=== PATIENT | male | born 1950 | race Native Hawaiian/Other Pacific Islander ===

== ENCOUNTER 2020-09-14 10:19 | Inpatient (IN) | payer OTHER ==
[2020-09-14] VITALS (22 sets, daily range): BP systolic 103–167; BP diastolic 72–111; TEMP 97–98.1; Ht 188 cm; Wt 81.6 kg
[~2020-09-14] VITALS: Ht 188 cm; Wt 81.6 kg
[~2020-09-14 10:19] MED LIST: ADULT ASA81 MG PO; AMITRIPTYLIN50 MG PO; ASPIRIN325 M1 PO; CYCL10TA35 PO; DICL75TA4 PO; GABA300C2 PO; LISITAB PO; METO50TA27 PO; OMEPRAZOLE20 M1 PO; PAROXETINE10 MG PO; PRAVACHOL80 MG PO; TRAZ50TA36 PO
[2020-09-14 10:42] LABS: PLATELET COUNT 242 K/uL (142-355)
[2020-09-14 10:53] LABS: POTASSIUM 3.6 mmol/L (3.6-5.2); SODIUM 137 mmol/L (136-145)
[2020-09-14 11:00] LABS: PARTIAL THROMBOPLASTIN TIME 21.6 SECONDS (24.5-33.6)
--- NOTE | 2020-09-14 19:07 | NUR ---
TO PCU VIA BED. PT IS ON FOOD STOREROOM CLERK WITH RATE OF 133-150.
--- NOTE | 2020-09-14 19:15 | NUR ---
BP KEEGAN 170/100. PT IS ALERT AND NOW BECOMING CALMER. IVPB AZITHROMAX BEING HUNG TO INFUSE. ATIVAN 1 MG IVSP BEING GIVEN FOR ANXIETY. DAUGHTER AT BEDSIDE.
--- NOTE | 2020-09-14 20:11 | NUR ---
PT IS IN RADIOLOGY FOR CATSCAN OF CHEST PER ORDERS OF DR. JIM. PT HAS HAD CT OF ABDOMEN EARLIER IN ER. PT BACK FROM CATSCAN AT 20:[address] TO HIS ROOM.HEART RATE IS 122 BPM. O2 SATS ARE 98 PERCENT.
--- NOTE | 2020-09-14 20:19 | NUR ---
1703 PT ARRIVED TO ROOM 1106 VIA STRETCHER. PT PALE, DIAPHORETIC, HR 167. HEAD TO TOE ASSESSMENT COMPLETED. MD NOTIFIED. MD AT BEDSIDE TO ASSESS PATIENT. NO NEW ORDERS GIVEN AT THIS TIME. HISTORY COMPLETED. HOME MEDICATIONS OBTAINED PER LIST.1753 NEW ORDERS GIVEN FOR CARDIAC ENZYMES AND EKG 20G TO LFA X1. 20G TO RFA X 1. MD NOTIFIED HR OF 168 NEW ORDERS GIVEN OR CARDIZEM 5MG IVP. ORDERS CARRIED OUT. ORDER FOR MORPHINE OBTAINED AND CARRIED OUT. PT HR 150-170. BP 170/100 MD NOTIFIED. FSBS 148 PT IS DIAPHORETIC AND PALE COMPLAINNG OF A TEARING PAIN BETWEEN SHOULDERS. NEW ORDERS GIVEN HR 153 LABETOLOL 10MG IV GIVEN. HR 120 MD NOTIFIED. SPOKE TO RADIOLOGIST REGARDING PT HAVING CT WITH CONTRAST. GAVE ORDER FOR CT OF CHEST WITH CONTRAST. NEW ORDERS CARRIED OUT AT 1945 BP 147/90.
--- NOTE | 2020-09-14 20:44 | NUR ---
NOTIFED OF CT RESULTS NO NEW ORDERS GIVEN.
--- NOTE | 2020-09-14 21:21 | NUR ---
PT IS RESTING QUIETLY AT THIS TIME. RESP EVEN AND NONLABORED. CM WITH TACHYCARDIA AT 106. MORE REGULAR RHYTHM. BP IS 162/90. MONITORING BP. HR IS 109. O2 SAT IS 99 PERCENT.
[2020-09-15] VITALS (24 sets, daily range): BP systolic 11–157; BP diastolic 58–106; TEMP 97.4–99
--- NOTE | 2020-09-15 03:57 | NUR ---
PT AROUSES, SHAKING AND PULLING OFF MONITORING EQUIPMENT. COMPLAINS OF BACK PAIN. MEDICATED WITH DILAUDID 1 MG IVSP.
--- NOTE | 2020-09-15 04:52 | NUR ---
NOTED BOTH ARMS ARE DISCOLORED. BRUSING FROM FALLS CHEESE FACTORY WORKER.
--- NOTE | 2020-09-15 04:53 | NUR ---
LAB HERE AND BLOOD WAS DRAWN FOR AM LABS.
--- NOTE | 2020-09-15 04:55 | NUR ---
AT 0000AM LAB YO BLOOD FOR CARDIAC ENZYMES NUMBER 3 . NUMBER 3 EKG WAS DONE ALSO.
[2020-09-15 05:17] LABS: PLATELET COUNT 169 K/uL (142-355)
[2020-09-15 05:26] LABS: POTASSIUM 3.1 mmol/L (3.6-5.2)
--- NOTE | 2020-09-15 05:30 | NUR ---
HR INCREASED TO 161 WHEN PT POSITIONED HIMSELF ON RIGHT SIDE.
--- NOTE | 2020-09-15 06:32 | NUR ---
PT HAS PERIODS OF SVT. HR QUICKLY RETURNS TO SINUS TACH 90 TO 110 BPM.
--- NOTE | 2020-09-15 08:00 | NUR ---
PT'S HR NOTED TO BE 150-170 ON TEL. PT RESTING IN BED WITH EYES CLOSED PT RESPONDS TO COMMANDS ALERT AND ORIENTED X 3. PT DENIES ANY CHEST PAIN OR SHORTNESS OF BREATH AT THIS TIME. WILL CONT TO MONITOR.
--- NOTE | 2020-09-15 10:00 | NUR ---
SPOKE WITH MD CONCERNING PT'S COUGH. COUGH NOTED TO BE LOOSE AND RATTLING. IVF'S DECREASED TO 125ML/HR PRIOR TO MD MAKING ROUNDS. WILL INFORM MD AND AWAIT NEW ORDERS.
--- NOTE | 2020-09-15 10:30 | NUR ---
PT'S BP NOTED TO BE 142/92 PT NOTED TO BE ANXIOUS AND JITTERY AT THIS TIME. PT'S SISTER IN ROOM AT THIS TIME. VISITOR SEEMS TO MAKE PT MORE ANXIOUS AT THIS TIME. WILL GIVE PRN MEDS FOR AGITATION AND CONT TO MONITOR.
--- NOTE | 2020-09-15 10:44 | NUR ---
PATIENT IS VERY HARD OF HEARING. SISTER PERCY CLARK IS AT BEDSIDE STATES THAT SHE AND THEIR OTHER SISTER GO CHECK ON MR. [place] SEVERAL TIMES A DAY. THEY PREPARE HIS MEALS FOR HIM. THE PATIENT DENIES THE NEED FOR HOME HEALTH SERVICES AND THE SISTERS ARE GOING TO CONTINUE TO TAKE CARE OF THE PATIENT ONCE HE IS DISCHARGED.
--- NOTE | 2020-09-15 11:00 | NUR ---
PT RESTING IN BED WITH EYES CLSOED. NO PROBLEMS NOTED AT THIS TIME.
--- NOTE | 2020-09-15 12:00 | NUR ---
PT'S BP NOTED TO BE 153/97 HR OF 110. PT RESTING IN BED WITH EYES CLOSED. NO CO OR PROBLEMS NOTED. MD INFORMED AND WILL MEDICATE WITH PRN AND CONT TO MONITOR.
--- NOTE | 2020-09-15 12:15 | NUR ---
DR JIM AT BS MAKING ROUNDS AT THIS TIME.
--- NOTE | 2020-09-15 13:47 | NUR ---
PT NOTED TO HAVE RUNS OF SVT ON TEL WITH RATE OF 140-150'S. RYTHM NOTED TO RETURN BACK TO SR WITH OCCASIONAL PAC'S WITH RATE OF 104. MD INFORMED AND WILL GIVE PRN CARDIZEM AND CONT TO MONITOR.
--- NOTE | 2020-09-15 14:30 | NUR ---
CALLED TO ROOM BY PT. UPON ENTERING THE ROOM PT VERY AGITATED AND TREMORS TO HANDS NOTED TO BE INCREASED AT THIS TIME. PT DEMANDED TO BE FED HIS JELLO SAGE HE WAS TOO SHAKY AT THIS TIME. PT FED HIS JELLO. PT THEN DEMANDED TO BE HELPED TO THE BR. PT ASSITED TO BR X 2. PT VERY UNSTEADY AT THIS TIME WITH AMBULATION. PT DID HAVE BM UNABLE TO COLLECT STOOL AT THIS TIME. PT ASSISTED BACK TO BED. PT UNHAPPY AT THIS TIME R/T BP CUFF AND CONT PULSE OX ATTACHED TO HIM AT THIS TIME. PRN MED FOR AGITATION GIVEN WILL CONT TO MONIOTR.
--- NOTE | 2020-09-15 15:11 | NUR ---
PT CALLED ME TO ROOM AND AGAIN NOTED TO BE AGITATED. PT STATED "YALL THREW ME IN THIS ROOM AND NOT LETTING ME GET TO MY WATER CUP OR FOOD OR ANYTHING" I RE-ORIENTED PT TO ROOM AND CALL LIGHT AND ASSURED PT HE COULD REACH HIS WATER CUP AND TABLE. PT YELLED OUT LOUD "YOU ALL ARE PISSED OFF AT ME I KNOW IT YALL ARE ALL RED IN COLOR". ATTEMPTED TO REASSURE PT NONE OF STAFF WAS UPSET OR ANGRY. FLUFFED PT'S PILLOWS AGAIN AND EXITED THE ROOM . WILL CONT TO MONITOR.
--- NOTE | 2020-09-15 15:15 | NUR ---
PT REMAINS AGITATED DR JIM IN ROOM AT THIS TIME. PT CONTINUES TO BE AGITATED AT THIS ITME. PT CALMING DOWN AFTER TALKING TO MD. INFOMRED PT'S HR CONTINUES TO MAINTAIN AROUND 110. NEW VERBAL ORDERS REC'D TO START DIGOXIN 0.5 IV AT THIS TIME.
--- NOTE | 2020-09-15 15:45 | NUR ---
PT'S SISTER IN ROOM AT AT THIS TIME. PT REMAINS SLIGHTLY AGITATED. PT'S SISTER STATES HE IS LIKE THIS AT HOME AT TIMES. WILL CON'T TO MONITOR.
--- NOTE | 2020-09-15 17:07 | NUR ---
1630 BP 157/106 HR 106-118 RR 22 96%RA 1650 PRN CARDIZEM GIVEN IVP PER MD ORDERS WILL CONT TO MONITOR. 1708 BP 118/71 HR 112 RR 18 WILL CONT TO MONITOR.
--- NOTE | 2020-09-15 17:50 | NUR ---
HR NOTED TO BE IN SVT WITH RATE OF 120-140. BP 159/[address] JIM NOTIIFED AND ATIVAN PRN AND LABETOL IVP GIVEN . NO NEW ORDERS GIVEN AT THIS TIME. PT'S HR DECREASED AND BACK AT HIS BASELINE OF 110 WILL CON'T TO MONITOR.
--- NOTE | 2020-09-15 18:30 | NUR ---
PT NOTED TO BE COUGHING AND CO HE COULD NOT BREATH LAYING DOWN PT ASSITED TO SIT UP ON SIDE OF BED AT THIS TIME. PT'S SATS ON 2L NC AT 100%. PT WAS ABLE TO PRODUCE THICK WHITE MUCOUS AT THIS TIME. SATS MAINTAINED AT 100%. DR JMI CALLED AND INSTRUCTED TO GIVE XOPONEX TX AT THIS TIME. RESP NOTIFIED BREATHING TX STARTED AT THIS TIME.
--- NOTE | 2020-09-15 21:08 | NUR ---
PT AWAKE AND ALERT LAYING IN BED WITH HOB ELEVATED, NO S/S OF ACUTE DISTRESS NOTED, PT TALKATIVE WITH STAFF AND LAUGHING WITH STAFF. REORIENTED TO PLACE DUE TO PT STATES HE DOES NOT KNOW WHAT HOSPITAL HE IS AT. PT TELLING STORIES TO COLORS CUSTODIAN. GAVE NIGHTLY MEDS WITH NO PROBLEMS, BOTH IV SITES INTACT, FOLELY PATENT DRAINING TO BEDSIDE WITH SMALL AMOUNT OF CLEAR MEDIUM YELLOW URINE NOTED IN BAG, TELEMETRY IN USE WITH IRREGULAR RATE 110s. NOTE IF PT SITS UP ON SIDE OF BED HEART RATE GOES TO 150s-130s BUT THEN DECREASES TO 120s. will monitor closely. encouraged to call as needed. rails up, bed in low position.
--- NOTE | 2020-09-15 22:56 | NUR ---
heart rate irregular and rate 130s TO 150 PT SITTING ON SIDE OF BED WITH NO ACUTE DISTRESS NOTED. GAVE LABETALOL 10MG IVP PRN. WILL MONITOR CLOSELY.
--- NOTE | 2020-09-15 23:26 | NUR ---
PT AWAKE IN BED WITH NO ACUTE DISTRESS NOTED, BOTH IV SITES INTACT, AMES PATENT, RESP RATE NONLABORED, TELEMETRY IN USE WITH IRREGULAR RATE IN 130s. PT APPEARS RESTLESS POSSIBLY IN PAIN. PT SLIGHTLY CONFUSED AT TIMES TO PLACE/TIME AND ALSO THINKS HE SEES SOMETHING ACROSS ROOM THATIS NOT THERE. REORIENTED PT WITH NO PROBLEMS, PT TALKATIVE WITH BLACK OFF WORKER. 2330 GAVE DILAUDID 1MG IVP SLOW PRN FOR GENERALIZED PAIN ALSO GAVE ZOFRAN 4MG SLOW IVP IN CASE DILAUDID MADE PT NAUSEATED. WILL MONITOR CLOSELY, RAILS UP, BED IN LOW POSITION.
--- NOTE | 2020-09-15 23:45 | NUR ---
PT AWAKE WITH NO ACUTE DISTRESS NOTED, SEEMS LESS RESTLESS SINCE PRN MED GIVEN, HEART RATE IRREGULAR 98-110(DECREASED SINCE MED GIVEN). WILL MONITOR CLOSELY.
[2020-09-16] VITALS (26 sets, daily range): BP systolic 86–138; BP diastolic 53–83; TEMP 1
--- NOTE | 2020-09-16 00:55 | NUR ---
PT CONFUSED MORE THAN EARLIER IN SHIFT, PT IS NOW SLIGHTLY AGITATED AND RESTLESS MESSING WITH AMES CATH TUBING TUGGING AT IT SOME, PULLED B/P CUFF OFF AND O2 SAT MONITOR(PULLED OFF SEVERAL TIMES). UNABLE TO REORIENT PT, ABLE TO REDIRECT PT SLIGHTLY FOR A MINUTE OR TWO. 0105 GAVE ATIVAN 1MG VERY SLOW IVP PRN FOR INCREASED AGITATION. PT POINT AT STUFF IN ROOM THAT DOES NOT EXIST.
--- NOTE | 2020-09-16 01:45 | NUR ---
PT CONTINUES TO GET MORE AGITATED AND CURSING LOUDLY AT STAFF, RESISTING CARE, UNABLE TO REORIENT OR REDIRECT PT AFTER MULTIPLE ATTEMPTS. 2 NURSES, PT HARDWOOD FLOOR INSTALLATION HELPER AT BEDSIDE WITH PT. PT DOES NOT KNOW HE IS AT HOSPITAL EVEN AFTER NURSING STAFF SHOWING ID BADGES PT CONTINUES TO BE DISORIENTED AND STARTED PUSHING AND SWATTING HIS HAND AT NURSING STAFF. PULLING AT HIS AMES CATH AND TELEMETRY LEADS. 0205 PT REMAINS EXTREMELY AGITATED AND CONFUSED, NOW TRYING TO GET OUT OF BED AND ALSO THINKS THERE IS A SNAKE IN HIS ROOM, PT NOW STANDING AT BEDSIDE PULLING AT AMES CATH, CURSING AT STAFF LOUDLY, NOTE PT VERY UNSTABLE ON HIS FEET AND IS SHAKING/TREMORS. EXPLAINED FALL RISK BUT PT REFUSES TO SIT DOWN. SURVEILLANCE SYSTEM MONITOR CALLED DR. Anahi CAPELLAN ER DR ABOUT PT'S STATUS NEW ORDER FOR GEODON 10MG IM X 1 DOSE NOW T.O. R&V DR. CAPELLAN/WILFRED WELSH, RN. 0210 NURSING STAFF ALONG WITH RESPIRATORY STAFF MEMBER(4 STAFF MEMBERS TOTAL) AT BEDSIDE WITH PT, ABLE TO GET PT TO SIT DOWN ON SIDE OF BED FOR A MINUTE OR TWO PT CONTINUES TO CURSE OUT STAFF AND CALL STAFF NAMES. GEODON 10MG IM GIVEN TO R DELTOID AT THIS TIME. 0220 PT EVEN MORE AGITATED AND NOW COMBATIVE KICKING AT STAFF AND TRYING TO HIT STAFF, NEW ORDER VIA TELEPHONE FOR GEODON 10MG IM X 1 DOSE NOW, ORDER FROM DR. CAPELLAN IN ER. 0224 GAVE GEODON 10MG IM TO L DELTOID, X4 NURSING STAFF MEMBERS REMAIN AT BEDSIDE WITH PT.
--- NOTE | 2020-09-16 02:30 | NUR ---
DR. Anahi CAPELLAN NOW AT BEDSIDE ALONG WITH 2 NURSES, 1 PT CARBONATOR, AND RESPIRATORY THERAPIST. PT CONTINUES TO BE AGITATED AND CONFUSED, CURSING AT STAFF AND CALLING NAMES, ATTEMPTED MULTIPLE TIMES SINCE AROUND APPROX 0145 TO REORIENT AND REDIRECT PT BUT PT CONTINUES TO GET MORE AGGITATED. PT CONTINUES TO BE COMBATIVE OFF AND ON PUSHING AT STAFF WHILE STAFF ATTEMPTING TO ASSIST PT DUE TO PT WILL NOT SIT DOWN ON BED OR IN CHAIR PT VERY UNSTEADY ON FEET AND TREMORS(PT HIGH FALL RISK AND CAN NOT AMBULATE WITHOUT ASSIST DUE TO THESE RISKS). 0235 PT HAS NOW PULLED AMES CATH BAG LOOSE FROM AMES CATH URINE NOTED ON FLOOR AND PT WILL NOT SIT DOWN SO HE WILL NOT FALL, DR REMAINS AT BEDSIDE ATTEMPTING TO REORIENT AND REDIRECT PT ALONG WITH NURSING STAFF. PT SAT ON BED BUT STARTED KICKING AT STAFF AGAIN CONTINUES TO CURSE AND BE AGITATED. NEW VERBAL ORDER FROM DR. Anahi CAPELLAN WHO IS AT BEDSIDE FOR BENADRYL 50MG IVP X 1 DOSE NOW, ORDER R&V BY THIS LENS MOLD SETTER. 0239 BENADRYL GIVEN PER NEW ORDER. STAFF REMAINS AT BEDSIDE WITH PT.
--- NOTE | 2020-09-16 03:08 | NUR ---
PT RESTING QUIETLY IN BED WITH EYES CLOSED, NO S/S OF PAIN OR ACUTE DISTRESS NOTED, RESP RATE NONLABORED, O2 AT 2LPM VIA NC, TELEMETRY IN USE WITH IRREGULAR RATE 100-110, AMES PATENT DRAINING TO BEDSIDE, IV HEP LOCK SITE INTACT, O2 SAT 94%, VITALS BEING MONITORED, RAILS UP, BED IN LOW POSITION, CALL LIGHT IN REACH. SEAFOOD PREPARER SITTING IN DOORWAY OF ROOM TO VISUALIZE PT AT ALL TIMES, RADIAL PULSES INTACT, HANDS COOL TO TOUCH BUT COOL TO TOUCH MOST OF SHIFT.
--- NOTE | 2020-09-16 04:30 | NUR ---
PT AWAKE REMAINS CONFUSED AND IS AGITATED CURSING OUT LOUD AND AT STAFF OFF AND ON. CALLING A MAN'S NAME AND TALKING OUT LOUD WHEN NO ONE IS IN ROOM WITH PT. LOOKING AT TV IN ROOM SEEMS TO SEE THINGS THAT ARE NOT THERE. PT REORIENTED AND ATTEMPTED TO BE REDIRECTED. TRYING TO GET PULSE OX MONITOR OFF HIS FINGER AND PULLING AT BEDRAILS STATES FOR STAFF TO PUT RAIL DOWN. ADVISED RAILS ARE FOR SAFETY.
--- NOTE | 2020-09-16 05:40 | NUR ---
PT NOTED TO BE LESS AGITATED BUT CONTINUES TO CURSE LOUDLY OFF AND ON AT STAFF AND CALLING FOR THEN CURSING AT A MAN NAMED EVAN. PT SHAKES BED RAILS AT TIMES AND ATTEMPTS TO KICK AMES CATH TUBING WITH HIS FOOT. 0600 NEW IV SITE OBTAINED TO L FA 20G X 2 STICKS BY MANAGER CLINICAL INFORMATICS, GOOD BLOOD RETURN AND FLUSHED EASILY WITH 10ML NS. REMAINS CONFUSED AND CONTINUES TO CURSE OUT LOUD OFTEN AND LOOKS AT STAFF THEN CALLS STAFF NAMES. TELEMETRY IN USE, AMES PATENT, VITALS BEING MONITORED.
[2020-09-16 05:47] LABS: PLATELET COUNT 214 K/uL (142-355)
[2020-09-16 05:52] LABS: POTASSIUM 3.1 mmol/L (3.6-5.2)
--- NOTE | 2020-09-16 06:08 | NUR ---
GAVE BENADRYL 25MG IVP X 1 DOSE NOW FOR CONTINUED AGITATION NOTED PREVIOUSLY. PT CONTINUES TO CURSE LOUDLY AND CALL STAFF NAMES, SHAKING BED RAILS AND APPEARS VERY UPSET. NEW MED ORDER FROM DR. Anahi CAPELLAN IN ER. WILL MONITOR CLOSELY. VESSEL SCRAPPER REMAINS WHERE SHE CAN SEE PT. RAILS UP FOR SAFETY AND BED IN LOW POSITION.
--- NOTE | 2020-09-16 07:00 | NUR ---
PT REMAINS AGITATED AND IS CONFUSED THINKS HE IS AT THIS HOUSE. CURSING AT STAFF AND CURSED AT WELL SERVICES OPERATOR TELLING ME TO GET OUT OF HIS HOUSE, CALLING STAFF NAMES. ATTEMPTED TO REORIENT AND REDIRECT PT. AMES PATENT DRAINING TO BEDSIDE, 20G IV INTACT TO L FA, TELEMETRY IN USE, VITALS BEING MONITORED, CALL LIGHT IN REACH.
--- NOTE | 2020-09-16 07:00 | NUR ---
REC'D PT IN BED IN HIGH FOWLERS POSITION. PT VERY AGITATED AND CUSSING STAFF AT THIS TIME. PT ATTEMPTING TO PULL AT IV'S, AMES AND TEL WIRES AND LEADS. ATTEMPTED TO RE-ORIENT PT WITHOUT SUCCESS. PT GETS MORE AGITATED WITH ANY INTERACTION FROM OR WITH STAFF. HR NOTED TO BE IRREG AND RATE OF 120 AT THIS TIME. BP OF 100/58 RR 24 SATS ON NC AT 2L 94%.
--- NOTE | 2020-09-16 07:30 | NUR ---
BP NOTED TO BE 96/54 HR 120 SATS 96% WITH NC AT 2L. IVF'S RESUMED BACK AT THIS TIME AT 125ML/HR FOR HYPOTENSION. AWARE.
--- NOTE | 2020-09-16 07:52 | NUR ---
LEFT MESSAGE FOR DR JIM TO UPDATE ON PT AND CHAGE IN CONDITION. AWAITING FURTHER ORDERS.
--- NOTE | 2020-09-16 08:30 | NUR ---
PT'S BP NOTED TO BE 124/68 HR 110 SATS 94 WITH NC AT 2L. WILL MAINTAIN IVF'S AT 125ML/HR UNTIL FURTHER ORDERS. PT REAMINS AWAKE BUT CONFUSED X 2. PT ALSO REMAINS VERY AGITATED STILL CUSSING AT STAFF AND PULLING AT AMES AND TEL AND CACRIDAC MONITOR.
--- NOTE | 2020-09-16 09:30 | NUR ---
D/T PT REMAINING VERY AGITATED AND CON BNTIMUESN TO PULL AT AMES AND CONT PULSE OX. DR JIM NOTIFIED OF PT AGITATION AND REFUSING TO KEEP EQUIPMENT INTACT. NEW ORDERS REC'D FOR HALDOL 5MG IM X 1 DOSE NOW
--- NOTE | 2020-09-16 12:00 | NUR ---
PT ATTMEPTING TO GET OUT OF BED. PT NOTED TO HAVE AMES CATH IN HAND AND SMALL AMT OF BRIGHT RED BLOOD NOTED FROM PENIS. APPROX 150ML OF YELLOW URINE NOTED INTO AMES BAG. AT THIS TIME AMES CATH DC'D DUE TO BLEEDING NOTED AT INSERTION SITE AND TO PENIS. WILL INOKOURTNEY BROOKS. WILL GIVE PEN MED IF TIME
--- NOTE | 2020-09-16 12:20 | NUR ---
DR JIM AT BS AT THIS TIME. INFORMED OF AGITATION AND BLEEDING AND DC OF AMES CATH. BP WBL HR REMAINS 120. NEW ORDERS REC'D TO GIVVE GEODON 10MG IM NOW. PT HAD BM AT THIS TIME ; SMALL AMT OF DSSTOOL NOTED WITH MUCOUS AND BRIGHT RED BLOOD. BANDAR COLLECTED AND SENT TO LAB . MD CACERES
--- NOTE | 2020-09-16 13:29 | NUR ---
PT VERY AGITATED TRYING TO CLIMB OUT OF BED OVER BED RAILS . INFOMRCJ ANDN NEW ORDDERS GIVEN TO REPEAT HALDOL 5MG AT THIS TIME
--- NOTE | 2020-09-16 13:31 | NUR ---
HALIDOL 5MG IM TIMES ONE DOSE NOW PER MD ORDERS.
--- NOTE | 2020-09-16 14:00 | NUR ---
INFORMED PER THAT SHE HAD SPOKE TO HOSP AT [facility] ABOUT POSSIBLE TRANSFER 1288 INFORMED PER MD [place] HAD ACCEPTED PT. AWAITING ROOM ASSIGNMENT
--- NOTE | 2020-09-16 15:05 | NUR ---
PT'S BP 86/55 HR 110 RESP 16 DDR DIANDRA NOTIFIED AND ORDER OBTAINED FOR NARCAN 0.4MG IV NOW . PT PLACED IN TREND POSITION IVF'S NS INCREASED TO 999ML/HR. NARCAN 0.4MG GIVEN IV 1510 PT'S BP NOW 99/64 HR 112 RESP 20 PT AROUSING AT THIS TIME 1512 NOW AWAKE BP 134/83 HR 114 RR 22 SATS 94 WITH O2 DNC AT 2L
--- NOTE | 2020-09-16 15:05 | NUR ---
ROOM ASSSIGNMENT REC'D FROM MUKESH AT BED CONTROL. PT WILL GO TO ROOM 354 TO [facility] ON [facility] ACCEPTING MD DR BAH
--- NOTE | 2020-09-16 15:15 | NUR ---
EMS NOTIFIED OF TRANSFER
--- NOTE | 2020-09-16 15:38 | NUR ---
CALLED TO GIVE REPORT TO [facility] SPOKE WITH PETER AND SHE SAID THE NURSE WOULD BE SKYLER AND HE WAS IN ANOTHER PTS' ROOM AND WOULD RETUEN MY CALL. INFORMED PETER THAT [facility] HAD GAVE ME ETA OF 23 MINS.
--- NOTE | 2020-09-16 15:44 | NUR ---
1520 INFOMRED PER EMS THEY HAD A TRIP TO [facility]. NOTIFIED AND GAVE ORDER TO CALL [facility] TO TRANSFER. 1522 ER NOTIFIED TO CALL [facility] FO RTRANSFER.
--- NOTE | 2020-09-16 15:51 | NUR ---
PT PLACED ON 35% VENTI MASK AT 9LPM. SPO2 AT 97-100%.
--- NOTE | 2020-09-16 16:00 | NUR ---
PT NOTED TO BE SHOWING SVT ON TEL WITH RATE OF 150-160'S. BP 114/65 SATS 100% WITH VENTI-MASK. DR JIM NOTIFIED OF CHANGE IN PT CONCERNING HR. NEW ORDERS REC'D TO GIVE AMIODERONE 150MG FIRST DOSE PER PROTOCOL THEN GIVE AMIODARONE 360MG/200ML PER PROTOCOL. 1625 FIRST DOSE OF AMIODERONE 150MG IV STARTED PER AE AT BS PER MD ORDERS. 1650 SECOND DOSE OF AMIODERONE STARTED PER AE AT BS PRIOR TO LEAVING PCU.
--- NOTE | 2020-09-16 16:10 | NUR ---
REPORT GIVEN TO SKYLER WELLS
--- NOTE | 2020-09-16 16:59 | NUR ---
1610 AE HERE AT THIS TIME IN ROOM TO TRANSFER PT 1650 PT LEFT VIA STRECTHER WITH AE.
--- NOTE | 2020-09-16 17:23 | NUR ---
CALLED PT'S SISTER PERCY AND SHE WILL COME GET PT'S PERSONAL BELONGINGS (CANE, CLOTHES AND DUFFEL BAG) IN THE AM . EXPLAINED BELONGINGS WILL BE AT NS
== END 2020-09-16 17:20 | disposition short-term general hospital (02) | DRG 308 ==
LOC: ED 10:19 → MED/SURG 16:32 → PCU 19:05
PROVIDERS: Hospitalist; ADMIT Internal Medicine; ATTEND Internal Medicine
DX: I47.1 Supraventricular tachycardia (principal); I71.02 Dissection of abdominal aorta; K92.2 Gastrointestinal hemorrhage, unspecified; N28.9 Disorder of kidney and ureter, unspecified; F41.8 Other specified anxiety disorders; E78.49 Other hyperlipidemia; I73.89 Other specified peripheral vascular diseases; G89.4 Chronic pain syndrome; K21.9 Gastro-esophageal reflux disease without esophagitis; I10 Essential (primary) hypertension; J44.9 Chronic obstructive pulmonary disease, unspecified; D72.828 Other elevated white blood cell count; Z86.73 Personal history of transient ischemic attack (TIA), and cerebral infarction without residual deficits
CPT/HCPCS: 36415; 80048; 80053; 80307; 80320; 81000; 82150; 82272; 82550; 83605; 83735; 83880; 84484; 85027; 85610; 85730; 87015; 87040; 87045; 87635; 87899; 93005; 94664; 94760; 96360; 96361; 96365; 96366; 96375; 96376; 99284; J0282; J0360; J0456; J1160; J1170; J1200; J1630; J1956; J2060; J2270; J2310; J2405; J3475; J3486; J3490; Q9963; U0003